=== PATIENT | male | born 1975 | race Caucasian/White ===

== ENCOUNTER 2018-04-21 16:07 | Emergency (ER) | payer OTHER ==
[~2018-04-21] VITALS: Wt 76.8 kg
[2018-04-21 16:20] VITALS: BP 139/76; PULSE 107; RESP 18
--- NOTE | 2018-04-21 17:40 | ERD ---
ER Documentation Chief Complaint Chief Complaint suboxone rx. advised we may not be able to fill request; OK for referrals HPI 42-year-old male presented to ED requesting a prescription for Suboxone. Patient states that he used to take it long time ago, at the time it was prescribed by a doctor in [facility]. He is living in this area currently, and not able to drive down to [facility] to get his prescription. He got "2 strips" of Suboxone a few days ago on the street. Patient has history of substance abuse. Denies pain at this time. Denies any other medical history. ROS All systems reviewed and are negative except as per history of present illness. Allergies Allergies: Coded Allergies: No Known Allergy (Unverified , 04/21/18) PMhx/Soc History of Surgery: Yes (scalp surgery) Anesthesia Reaction: No Hx Neurological Disorder: No Hx Respiratory Disorders: No Hx Cardiac Disorders: No Hx Psychiatric Problems: No Hx Miscellaneous Medical Probl: Yes (Substance/Alcohol abuse) Hx Alcohol Use: Yes (beer today) Hx Substance Use: Yes (04/19/18 heroin ) Hx Tobacco Use: Yes (daily) Smoking Status: Current every day smoker Physical Exam Vitals Vital Signs Date Temp Pulse Resp B/P (MAP) Pulse Ox O2 O2 Flow FiO2 Time Delivery Rate 04/21/18 98.5 107 18 139/76 97 16:20 (97) Physical Exam General: Well-developed, well-nourished, conscious and coherent, in no distress Skin: Warm and dry without rash, good texture and turgor Head: Normocephalic without evidence of trauma Neck: Supple without meningismus or adenopathy. Carotids are equal. Trachea midline. No bruits or JVD Chest: Normal AP diameter. Good expansion without retractions. Nontender. Lungs are clear to auscultate bilaterally with good tidal volume Heart: Regular rate and rhythm. No murmur, rub, or gallops heard Extremities: Full range of motion. Good strength bilaterally. No erythema, ecchymosis, or edema. Peripheral pulses are intact. Sensation intact Neuro: Alert and oriented 4, GCS 15. Procedures/MDM Well-appearing 42-year-old male presented to ED requesting prescription of Suboxone. I advised patient the cannot provide this prescription for him in the ED. He will need to see a toy painter. Patient expressed understanding. Patient appears well, stable for discharge and outpatient management. Medical decision making shared with patient and family. Education provided to patient and family. Patient and family expressed understanding of the plan. Medications on discharge: None. Follow-up: Primary care provider for pain management referral. Disclaimer: Inadvertent spelling and grammatical errors are likely due to EHR/dictation software use and do not reflect on the overall quality of patient care. Also, please note that the electronic time recorded on this note does not necessarily reflect the actual time of the patient encounter. Departure Diagnosis: Primary Impression: Medication requested by patient but not prescribed or administ... Condition: Stable Patient Instructions: Taking Medicine Safely Referrals: [facility] YOU HAVE RECEIVED A MEDICAL SCREENING EXAM AND THE RESULTS INDICATE THAT YOU DO NOT HAVE A CONDITION THAT REQUIRES URGENT TREATMENT IN THE EMERGENCY DEPARTMENT. FURTHER EVALUATION AND TREATMENT OF YOUR CONDITION CAN WAIT UNTIL YOU ARE SEEN IN YOUR DOCTORS OFFICE WITHIN THE NEXT 1-2 DAYS. IT IS YOUR RESPONSIBILITY TO MAKE AN APPOINTMENT FOR FOLOW-UP CARE. IF YOU HAVE A PRIMARY DOCTOR --you should call your primary doctor and schedule an appointment IF YOU DO NOT HAVE A PRIMARY DOCTOR YOU CAN CALL OUR PHYSICIAN REFERRAL HOTLINE AT IF YOU CAN NOT AFFORD TO SEE A PHYSICIAN YOU CAN CHOSE FROM THE FOLLOWING [facility] [address] [facility]. [facility] [address] [facility] [facility] [address] [facility] [facility] [address] [facility] [address] [facility]. [facility]. [address] Additional Instructions: Please follow-up with your primary provider for referral to pain management clinic. PAUL JOSUE NP Apr 21, 2018 17:40
== END 2018-04-21 17:37 | disposition home or self-care (01) ==
LOC: FTE 16:07
DX: Z00.00 Encounter for general adult medical examination without abnormal findings (principal); F17.210 Nicotine dependence, cigarettes, uncomplicated; R40.2412 Glasgow coma scale score 13-15, at arrival to emergency department
CPT/HCPCS: 99281

== ENCOUNTER 2018-08-13 13:40 | Emergency (ER) | payer OTHER ==
[~2018-08-13] VITALS: Wt 79.0 kg
[2018-08-13 13:45] VITALS: BP 130/91; PULSE 82; RESP 20
[2018-08-13] MEDS ORDERED: IBUPROFEN 600 MG TAB PO ONE (14:30)
[2018-08-13] MEDS ORDERED: SULF1TAB31 PO (15:52)
[2018-08-13] MEDS ORDERED: NAPR-985 PO (15:52)
--- NOTE | 2018-08-13 20:06 | ERD ---
ER Documentation Chief Complaint Chief Complaint L LOWER ARM SWELLING ONSET 3 DAYS AGO. NO FEVERS. NO REDNESS. GOOD PULSES HPI 42-year-old male with no significant past medical history presenting to the emergency department complaining of swelling to his left arm which has been worsening over the past 3 days. He reports swelling localized to the left forearm and the left hand. He has been taking Keflex which was prescribed by his doctor for possible cellulitis. There is associated pain which is worse with movement. Pain is rated 8/10 in severity and constant. No fevers, chills, or other symptoms reported at this time. ROS All systems reviewed and are negative except as per history of present illness. Medications Home Meds Active Scripts Naproxen* (Naprosyn*) 500 Mg Tablet, 500 MG PO BID PRN for PAIN AND/OR INFLAMMATION, #30 TAB Prov:RYAN CAMACHO PA-C 08/13/18 Sulfamethoxazole/Trimethoprim* (Bactrim Ds* Tablet) 1 Each Tablet, 1 TAB PO BID, #14 TAB Prov:RYAN CAMACHO PA-C 08/13/18 Allergies Allergies: Coded Allergies: No Known Allergy (Unverified , 04/21/18) PMhx/Soc History of Surgery: Yes (skull removal surgery) Anesthesia Reaction: No Hx Neurological Disorder: Yes (seizures) Hx Respiratory Disorders: No Hx Cardiac Disorders: No Hx Psychiatric Problems: No Hx Miscellaneous Medical Probl: Yes (Substance/Alcohol abuse) Hx Alcohol Use: Yes (beer today) Hx Substance Use: Yes (04/19/18 heroin, smokes weed daily) Hx Tobacco Use: No Smoking Status: Former smoker FmHx Family History: No diabetes Physical Exam Vitals Vital Signs Date Temp Pulse Resp B/P (MAP) Pulse Ox O2 O2 Flow FiO2 Time Delivery Rate 08/13/18 98.2 82 20 130/91 99 13:45 (104) Physical Exam Const: No acute distress Head: Atraumatic Eyes: Normal Conjunctiva ENT: Normal External Ears, Nose and Mouth. Neck: Full range of motion. No meningismus. Resp: Clear to auscultation bilaterally Cardio: Regular rate and rhythm, no murmurs Skin: No petechiae or rashes Back: No midline or flank tenderness Ext: Swelling, warmth, and erythema noted to the left forearm of the left hand. Range of motion of the left wrist is intact. Patient is neurovascularly intact to the left upper extremity. Neur: Awake and alert Psych: Normal Mood and Affect Results 24 hrs Current Medications Medications Dose Sig/Humza Start Time Status Last (Trade) Ordered Route PRN Stop Time Admin Dose Reason Admin Ibuprofen 600 mg ONCE ONCE 08/13/18 DC 08/13/18 (Motrin) PO 14:30 14:28 08/13/18 14:31 [place] [address] [facility] Main Line: [phone] DIAGNOSTIC IMAGING REPORT Patient: TEAGAN ENCARNACION : 1975 Age: 42 Sex: M MR #: [id number] DOS: 08/13/18 0000 Ordering MD: RYAN CAMACHO PA-C Location: [facility] Room/Bed: PROCEDURE: US upper extremity Venous. CLINICAL INDICATION: Left arm edema TECHNIQUE: Multiple sonographic images of the left upper extremity venous system was obtained utilizing grayscale, color-flow, compressive sonography and doppler imaging with augmentation. The images were reviewed on a PACS workstation. COMPARISON: None. FINDINGS: There is normal compressibility and flow within the left internal jugular vein, subclavian vein, axillary vein, brachial, basilic, cephalic, radial and ulnar veins. RPTAT: AA IMPRESSION: No sonographic evidence for venous thrombosis. .Alf Barnett MD, MD Date Time Electronically viewed and signed by .Alf Barnett MD, MD on 08/13/2018 15:22 .S/ CC: RYAN CAMACHO PA-C [id number] [place] [address] Rad[address] Main Line: [phone] DIAGNOSTIC IMAGING REPORT Patient: TEAGAN ENCARNACION : 1975 Age: 42 Sex: M MR #: [id number] DOS: 08/13/18 0000 Ordering MD: RYAN CAMACHO PA-C Location: [facility] Room/Bed: PROCEDURE: Left hand x-ray CLINICAL INDICATION: pain TECHNIQUE: AP, lateral and oblique views of the left hand were obtained. COMPARISON: None FINDINGS: There is normal mineralization. No acute fracture or dislocation is seen. There are no significant degenerative changes. There is no significant soft tissue swelling. RPTAT: AA IMPRESSION: Normal x-ray of the left hand x-ray . .Alf Barnett MD, MD Date Time Electronically viewed and signed by .Alf Barnett MD, MD on 08/13/2018 14:57 .S/ CC: RYAN CAMACHO PA-C [id number] [place] [address] Radiology Main Line: [phone] DIAGNOSTIC IMAGING REPORT Patient: TEAGAN ENCARNACION : 1975 Age: 42 Sex: M MR #: [id number] DOS: 08/13/18 0000 Ordering MD: RYAN CAMACHO PA-C Location: [facility] Room/Bed: PROCEDURE: XR Wrist. CLINICAL INDICATION: pain TECHNIQUE: AP, lateral and oblique views of the left wrist were performed. COMPARISON: No prior studies are available for comparison. FINDINGS: There is no evidence of acute fracture. No evidence of dislocation or subluxation. The bones appear well mineralized. The joint spaces are well preserved. The soft tissues are normal. RPTAT: AA IMPRESSION: Unremarkable exam of the left wrist. .Alf Barnett MD, MD Date Time Electronically viewed and signed by .Alf Barnett MD, MD on 08/13/2018 14:57 .S/ CC: RYAN CAMACHO PA-C [id number] Procedures/MDM 42-year-old male presenting to the emergency department with signs and symptoms most consistent with cellulitis of the left upper extremity. Venous Doppler of the left upper extremity showed no evidence of DVT. X-rays show no evidence of fracture per radiology. Patient will be treated as an outpatient with a prescription for Bactrim and naproxen. He was advised to continue taking the Keflex prescribed by his primary care physician. No evidence of compartment syndrome, necrotizing fasciitis, sepsis, or other emergencies. Patient will be discharged home and he was advised to return immediately for any new or worsening or concerning symptoms. He was in agreement of the diagnosis, plan, need for follow-up, return precautions. Patient's blood pressure was elevated (>120/80) but appears stable without evidence of hypertension emergency or urgency. The patient is to follow-up and pursue outpatient monitoring and therapy with their primary care physician within 1 week and return immediately if they have any new, worsening, or concerning symptoms. Departure Diagnosis: Primary Impression: Cellulitis of left arm Condition: Fair Patient Instructions: Cellulitis Referrals: [facility] YOU HAVE RECEIVED A MEDICAL SCREENING EXAM AND THE RESULTS INDICATE THAT YOU DO NOT HAVE A CONDITION THAT REQUIRES URGENT TREATMENT IN THE EMERGENCY DEPARTMENT. FURTHER EVALUATION AND TREATMENT OF YOUR CONDITION CAN WAIT UNTIL YOU ARE SEEN IN YOUR DOCTORS OFFICE WITHIN THE NEXT 1-2 DAYS. IT IS YOUR RESPONSIBILITY TO MAKE AN APPOINTMENT FOR FOLOW-UP CARE. IF YOU HAVE A PRIMARY DOCTOR --you should call your primary doctor and schedule an appointment IF YOU DO NOT HAVE A PRIMARY DOCTOR YOU CAN CALL OUR PHYSICIAN REFERRAL HOTLINE AT IF YOU CAN NOT AFFORD TO SEE A PHYSICIAN YOU CAN CHOSE FROM THE FOLLOWING [facility] [address] [facility] [address] [facility] [facility] [address] [facility] [address] [facility] [address] [facility]. [facility] [address] Additional Instructions: Call your primary care doctor TOMORROW for an appointment during the next 1-2 days.See the doctor sooner or return here if your condition worsens before your appointment time. RYAN CAMACHO PA-C August 13, 2018 20:06
== END 2018-08-13 16:07 | disposition home or self-care (01) ==
LOC: FTE 13:40
DX: L03.114 Cellulitis of left upper limb (principal); Z87.891 Personal history of nicotine dependence
CPT/HCPCS: 93971

== ENCOUNTER 2019-01-23 10:09 | Emergency (ER) | payer OTHER ==
[~2019-01-23] VITALS: Ht 175.3 cm; Wt 81.0 kg
[~2019-01-23 10:09] MED LIST: HC30CR25 TOP; NAPR-985 PO; SULF1TAB31 PO
[2019-01-23 10:14] VITALS: BP 139/90; PULSE 102; RESP 18; Ht 175.3 cm; Wt 81.0 kg
== END 2019-01-23 12:56 | disposition home or self-care (01) ==
LOC: FTE 10:09
DX: R21 Rash and other nonspecific skin eruption (principal); E11.9 Type 2 diabetes mellitus without complications
CPT/HCPCS: 99282